=== PATIENT | female | born 1965 | race Caucasian/White ===

== ENCOUNTER 2020-05-16 22:49 | Observation (INO) | payer BC ==
--- NOTE | 2020-05-16 23:01 | EDM.PDOC ---
ED HPI GENERAL MEDICAL PROBLEM - General Chief Complaint: Abdominal Pain Stated Complaint: abdominal pain Time Seen by Provider: 05/16/20 23:00 - History of Present Illness INITIAL COMMENTS - FREE TEXT/NARRATIVE: 55-year-old female presents the emergency room with abdominal pain. She had an episode of upper abdominal pain with some associated vomiting last night and again this evening. She did not seem to have eaten before these episodes patient was found to have gallstones in the past but nothing was done with this. The patient has not had associated fevers and chills. No diarrhea. The pain is usually right upper quadrant but now radiates across her upper abdomen. She used to have reflux but is not having any reflux-like symptoms currently. Bilateral Upper Abdominal Pain Score (Numeric/FACES): 10 - Related Data Allergies Allergy/AdvReac Type Severity Reaction Status Date / Time acetaminophen [From Vicodin] Allergy Severe Numbness Verified 05/16/20 23:01 hydrocodone [From Vicodin] Allergy Severe Numbness Verified 05/16/20 23:01 Sulfa (Sulfonamide Allergy Severe Rash Verified 05/16/20 23:01 Antibiotics) Home Meds: Home Meds Levothyroxine 150 mcg PO DAILY 05/16/20 [History] lisinopriL [Lisinopril] 10 mg PO DAILY 05/16/20 [History] ED ROS GENERAL - Review of Systems Review Of Systems: See Below Constitutional: Reports: No Symptoms HEENT: Reports: No Symptoms Respiratory: Reports: No Symptoms Cardiovascular: Reports: No Symptoms GI/Abdominal: Reports: Abdominal Pain, Nausea, Vomiting. Denies: Constipation, Diarrhea : Reports: No Symptoms Musculoskeletal: Reports: No Symptoms Skin: Reports: No Symptoms Neurological: Reports: No Symptoms ED EXAM, GI/ABD - Physical Exam Exam: See Below Exam Limited By: No Limitations General Appearance: Alert, No Apparent Distress Head: Atraumatic, Normocephalic Neck: Normal Inspection, Supple, Non-Tender, Full Range of Motion. No: Lymphadenopathy (L), Lymphadenopathy (R) Respiratory/Chest: No Respiratory Distress, Lungs Clear, Normal Breath Sounds Cardiovascular: Regular Rate, Rhythm, No Edema, No Murmur GI/Abdominal Exam: Normal Bowel Sounds, Soft, Non-Tender Back Exam: Normal Inspection. No: CVA Tenderness (L), CVA Tenderness (R) Extremities: Normal Inspection, No Pedal Edema Neurological: Alert, Oriented, Normal Cognition Course - Vital Signs Last Recorded V/S: Last Vital Signs Temp 36.1 C 05/16/20 22:55 Pulse 65 05/16/20 22:55 Resp 20 05/16/20 22:55 BP 111/81 05/16/20 22:55 Pulse Ox 100 05/16/20 22:55 - Orders/Labs/Meds Orders: Active Orders 24 hr Category Date Time Status Abdomen Ltd [US] Stat Exams 05/16/20 23:44 Taken Lactated Ringers [Ringers, Lactated] 1,000 ml Med 05/16/20 23:15 Active IV ASDIRECTED Medication Orders Lactated Ringer's (Ringers, Lactated) 1,000 mls @ 150 mls/hr IV ASDIRECTED HI Last Admin: 05/16/20 23:26 Dose: 150 mls/hr Documented by: PATTIE Labs: Laboratory Tests 05/16/20 05/16/20 05/17/20 Range/Units 23:25 23:25 00:45 WBC 8.69 (3.98-10.04) K/mm3 RBC 4.77 (3.98-5.22) M/mm3 Hgb 14.2 (11.2-15.7) gm/dl Hct 41.9 (34.1-44.9) % MCV 87.8 (79.4-94.8) fl MCH 29.8 (25.6-32.2) pg MCHC 33.9 (32.2-35.5) g/dl RDW Std Deviation 38.6 (36.4-46.3) fL Plt Count 196 (182-369) K/mm3 MPV 10.5 (9.4-12.3) fl Neut % (Auto) 65.6 (34.0-71.1) % Lymph % (Auto) 23.5 (19.3-51.7) % [place] % (Auto) 7.8 (4.7-12.5) % Eos % (Auto) 2.4 (0.7-5.8) Baso % (Auto) 0.5 (0.1-1.2) % Neut # (Auto) 5.70 (1.56-6.13) K/mm3 Lymph # (Auto) 2.04 (1.18-3.74) K/mm3 [place] # (Auto) 0.68 H (0.24-0.36) K/mm3 Eos # (Auto) 0.21 (0.04-0.36) K/mm3 Baso # (Auto) 0.04 (0.01-0.08) K/mm3 Sodium 137 (136-145) mEq/L Potassium 3.8 (3.5-5.1) mEq/L Chloride 100 (98-107) mEq/L Carbon Dioxide 29 (21-32) mEq/L Anion Gap 11.8 (5-15) BUN 20 H (7-18) mg/dL Creatinine 1.1 H (0.55-1.02) mg/dL Est Cr Clr Drug Dosing 45.70 mL/min Estimated GFR (MDRD) 52 (>60) mL/min BUN/Creatinine Ratio 18.2 H (14-18) Glucose 136 H (74-106) mg/dL Calcium 9.2 (8.5-10.1) mg/dL Total Bilirubin 0.7 (0.2-1.0) mg/dL Direct Bilirubin 0.30 H (0.0-0.2) mg/dl AST 52 H (15-37) U/L ALT 53 (14-59) U/L Alkaline Phosphatase 92 (46-116) U/L Total Protein 7.9 (6.4-8.2) g/dl Albumin 3.8 (3.4-5.0) g/dl Globulin 4.1 gm/dL Albumin/Globulin Ratio 0.9 L (1-2) Urine Color Yellow (Yellow) Urine Appearance Clear (Clear) Urine pH 6.0 (5.0-8.0) Ur Specific [place] 1.025 (1.005-1.030) Urine Protein Negative (Negative) Urine Glucose (UA) Negative (Negative) Urine Ketones Negative (Negative) Urine Occult Blood Negative (Negative) Urine Nitrite Negative (Negative) Urine Bilirubin Negative (Negative) Urine Urobilinogen 0.2 (0.2-1.0) Ur Leukocyte Esterase Negative (Negative) Meds: Medications Generic Name Dose Route Start Last Admin Trade Name Freq PRN Reason Stop Dose Admin Lactated Ringer's 1,000 mls @ 150 mls/hr 05/16/20 23:15 05/16/20 23:26 Ringers, Lactated IV 150 mls/hr ASDIRECTED HI Administration Discontinued Medications Generic Name Dose Route Start Last Admin Trade Name Chidi PRN Reason Stop Dose Admin Al Hydroxide/Mg Hydroxide 30 0 ml 05/16/20 23:25 05/16/20 23:30 ml/ Lidocaine HCl 15 ml PO 05/16/20 23:26 45 ml ONETIME ONE Administration Fentanyl 50 mcg 05/16/20 23:09 05/16/20 23:58 Sublimaze IVPUSH 05/16/20 23:10 50 mcg ONETIME ONE Administration Ondansetron HCl 4 mg 05/16/20 23:07 05/16/20 23:26 Zofran IVPUSH 05/16/20 23:08 4 mg ONETIME ONE Administration - Re-Assessments/Exams Free Text/Narrative Re-Assessment/Exam: 05/17/20 01:35 Lab evaluation was unrevealing for the most part. Direct bili was 0.3 total bili 0.7 BUN 20 creatinine 1.1 no other significance I was able to get a gallbladder ultrasound which did show multiple gallstones with gallstone bladder wall thickening in the gallbladder wall measuring up to 3.9 mm no gennaro- cholecystic fluid present common bile duct measures 4.1 mm no stones or no dilat ion identified. She also had some hepatic steatosis noted. Case was discussed with Dr. Mares, on-call surgeon, and with careful conversation with the patient it was determined best to put the patient on observation anticipating laparoscopic cholecystectomy in the morning patient will be started on Zosyn. She will remain n.p.o. with as needed nausea and pain medications. Departure - Departure Time of Disposition: 01:40 Disposition: Refer to Observation Clinical Impression: Cholecystitis, Cholelithiasis - Discharge Information Sepsis Event Note (ED) - Evaluation Sepsis Screening Result: No Definite Risk - Focused Exam Vital Signs: Vital Signs Temp Pulse Resp BP Pulse Ox 05/16/20 22:55 36.1 C 65 20 111/81 100 - My Orders Last 24 Hours: My Active Orders 05/16/20 23:15 Lactated Ringers [Ringers, Lactated] 1,000 ml IV ASDIRECTED 05/16/20 23:44 Abdomen Ltd [US] Stat - Assessment/Plan Last 24 Hours: My Active Orders 05/16/20 23:15 Lactated Ringers [Ringers, Lactated] 1,000 ml IV ASDIRECTED 05/16/20 23:44 Abdomen Ltd [US] Stat
[2020-05-16] MEDS ORDERED: Ondansetron 4 MG/2 ML SDV IVPUSH ONE (23:07)
[2020-05-16] MEDS ORDERED: fentaNYL 100 MCG/2 ML SDV IVPUSH ONE (23:09)
[2020-05-16] MEDS ORDERED: Lactated Ringers 1,000 ML IV SCH (23:15)
[2020-05-16] MEDS ORDERED: Alum Hydrox/Mag Hydrox/Simeth 30 ML, Lidocaine 2% 15 ML PO ONE ×2 (23:25)
[2020-05-17] MEDS ORDERED: Piperacillin/Tazobactam 3.375 GM in Sodium Chloride 0.9% 100 ML IV ONE (04:28)
[2020-05-17] MEDS ORDERED: Ondansetron 4 MG/2 ML SDV IVPUSH PRN ×2 (04:30→09:44)
[2020-05-17] MEDS ORDERED: Dextrose 5%-Lactated Ringers 1,000 ML IV SCH (04:30)
[2020-05-17] MEDS ORDERED: HYDROmorphone 0.5 MG/0.5 ML Syringe IVPUSH PRN (04:33)
[2020-05-17] MEDS ORDERED: Piperacillin/Tazobactam 4.5 GM in Sodium Chloride 0.9% 100 ML IV ONE (04:45)
--- NOTE | 2020-05-17 06:00 | US ---
Limited abdominal ultrasound: Multiple real-time images of the upper right abdomen were obtained. Comparison: No prior abdominal imaging is available. Pancreas appears within normal limits. Liver appears slightly echogenic as compared to the right kidney. No focal abnormality is appreciated. Multiple gallstones seen within the gallbladder. Gallbladder wall appears somewhat thickened. No pericholecystic fluid is seen. Common bile duct measures within normal limits. Hypoechoic area is seen next to the gallbladder most likely representing focal fatty sparing. Right kidney shows no hydronephrosis or mass. Right kidney has a length 10.8 cm. Inferior vena cava is patent. Main portal vein shows normal hepatopedal flow. Impression: 1. Gallstones with mild gallbladder wall thickening. No biliary duct dilatation seen. 2. Low density is seen next to the gallbladder most likely representing focal fatty sparing. Fatty infiltration is seen within other portions of the liver. 3. No additional abnormality is seen on right upper quadrant abdominal ultrasound. Diagnostic code #3 This report was dictated in MDT I agree with preliminary report from [facility], finalized on 05/17/20, 1:46 AM Central Daylight Time
--- NOTE | 2020-05-17 08:01 | PCM.PREANE ---
Preanesthetic Assessment - Procedure Proposed Procedure: laparoscopic cholecystectomy - Anesthesia/Transfusion/Family Hx Anesthesia History: Prior Anesthesia Without Reaction Family History of Anesthesia Reaction: No Transfusion History: No Prior Transfusion(s) - Review of Systems General: Fatigue Pulmonary: No Symptoms Cardiovascular: No Symptoms Gastrointestinal: Abdominal Pain Neurological: No Symptoms Other: Reports: Thyroid Problems (hypothyroid) - Physical Assessment NPO Status Date: 05/16/20 NPO Status Time: 00:00 Vital Signs: Last Vital Signs Temp 36.7 C 05/17/20 03:29 Pulse 71 05/17/20 03:29 Resp 16 05/17/20 03:29 BP 109/57 L 05/17/20 03:29 Pulse Ox 100 05/17/20 03:29 Height: 1.57 m Weight: 66.633 kg ASA Class: 2 Mental Status: Alert & Oriented x3 Airway Class: Mallampati = 1 Dentition: Reports: Normal Dentition, [place](s) Thyro-Mental Finger Breadths: 2 Mouth Opening Finger Breadths: 3 ROM/Head Extension: Full Lungs: Clear to Auscultation, Normal Respiratory Effort Cardiovascular: Regular Rate, Regular Rhythm - Lab Values: Laboratory Last Values WBC 8.69 K/mm3 (3.98-10.04) 05/16/20 23:25 RBC 4.77 M/mm3 (3.98-5.22) 05/16/20 23:25 Hgb 14.2 gm/dl (11.2-15.7) 05/16/20 23:25 Hct 41.9 % (34.1-44.9) 05/16/20 23:25 MCV 87.8 fl (79.4-94.8) 05/16/20 23:25 MCH 29.8 pg (25.6-32.2) 05/16/20 23:25 MCHC 33.9 g/dl (32.2-35.5) 05/16/20 23:25 RDW Std Deviation 38.6 fL (36.4-46.3) 05/16/20 23:25 Plt Count 196 K/mm3 (182-369) 05/16/20 23:25 MPV 10.5 fl (9.4-12.3) 05/16/20 23:25 Neut % (Auto) 65.6 % (34.0-71.1) 05/16/20 23:25 Lymph % (Auto) 23.5 % (19.3-51.7) 05/16/20 23:25 [place] % (Auto) 7.8 % (4.7-12.5) 05/16/20 23:25 Eos % (Auto) 2.4 (0.7-5.8) 05/16/20 23:25 Baso % (Auto) 0.5 % (0.1-1.2) 05/16/20 23:25 Neut # (Auto) 5.70 K/mm3 (1.56-6.13) 05/16/20 23:25 Lymph # (Auto) 2.04 K/mm3 (1.18-3.74) 05/16/20 23:25 [place] # (Auto) 0.68 K/mm3 (0.24-0.36) H 05/16/20 23:25 Eos # (Auto) 0.21 K/mm3 (0.04-0.36) 05/16/20 23:25 Baso # (Auto) 0.04 K/mm3 (0.01-0.08) 05/16/20 23:25 Sodium 137 mEq/L (136-145) 05/16/20 23:25 Potassium 3.8 mEq/L (3.5-5.1) 05/16/20 23:25 Chloride 100 mEq/L (98-107) 05/16/20 23:25 Carbon Dioxide 29 mEq/L (21-32) 05/16/20 23:25 Anion Gap 11.8 (5-15) 05/16/20 23:25 BUN 20 mg/dL (7-18) H 05/16/20 23:25 Creatinine 1.1 mg/dL (0.55-1.02) H 05/16/20 23:25 Est Cr Clr Drug Dosing 45.70 mL/min 05/16/20 23:25 Estimated GFR (MDRD) 52 mL/min (>60) 05/16/20 23:25 BUN/Creatinine Ratio 18.2 (14-18) H 05/16/20 23:25 Glucose 136 mg/dL (74-106) H 05/16/20 23:25 Calcium 9.2 mg/dL (8.5-10.1) 05/16/20 23:25 Total Bilirubin 0.7 mg/dL (0.2-1.0) 05/16/20 23:25 Direct Bilirubin 0.30 mg/dl (0.0-0.2) H 05/16/20 23:25 AST 52 U/L (15-37) H 05/16/20 23:25 ALT 53 U/L (14-59) 05/16/20 23:25 Alkaline Phosphatase 92 U/L (46-116) 05/16/20 23:25 Total Protein 7.9 g/dl (6.4-8.2) 05/16/20 23:25 Albumin 3.8 g/dl (3.4-5.0) 05/16/20 23:25 Globulin 4.1 gm/dL 05/16/20 23:25 Albumin/Globulin Ratio 0.9 (1-2) L 05/16/20 23:25 Urine Color Yellow (Yellow) 05/17/20 00:45 Urine Appearance Clear (Clear) 05/17/20 00:45 Urine pH 6.0 (5.0-8.0) 05/17/20 00:45 Ur Specific [place] 1.025 (1.005-1.030) 05/17/20 00:45 Urine Protein Negative (Negative) 05/17/20 00:45 Urine Glucose (UA) Negative (Negative) 05/17/20 00:45 Urine Ketones Negative (Negative) 05/17/20 00:45 Urine Occult Blood Negative (Negative) 05/17/20 00:45 Urine Nitrite Negative (Negative) 05/17/20 00:45 Urine Bilirubin Negative (Negative) 05/17/20 00:45 Urine Urobilinogen 0.2 (0.2-1.0) 05/17/20 00:45 Ur Leukocyte Esterase Negative (Negative) 05/17/20 00:45 SARS Virus RNA (PCR) Negative (NEGATIVE) 05/17/20 01:40 - Allergies Allergies/Adverse Reactions: Allergies Allergy/AdvReac Type Severity Reaction Status Date / Time acetaminophen [From Vicodin] Allergy Severe Numbness Verified 05/17/20 03:45 hydrocodone [From Vicodin] Allergy Severe Numbness Verified 05/17/20 03:45 Sulfa (Sulfonamide Allergy Severe Rash Verified 05/17/20 03:45 Antibiotics) - Blood Blood Available: No Product(s) Available: None - Anesthesia Plan Pre-Op Medication Ordered: None - Acknowledgements Anesthesia Type Planned: General Anesthesia Pt an Appropriate Candidate for the Planned Anesthesia: Yes Alternatives and Risks of Anesthesia Discussed w Pt/Guardian: Yes Pt/Guardian Understands and Agrees with Anesthesia Plan: Yes PreAnesthesia Questionnaire - Past Health History Medical/Surgical History: Denies Medical/Surgical History Cardiovascular History: Reports: Hypertension Respiratory History: Reports: Other (See Below) Other Respiratory History: seasonal allergies Gastrointestinal History: Reports: GERD, Other (See Below) Other Gastrointestinal History: gall stones RESULTS ENGINEER History: Reports: Neurological History: Reports: Vertigo Endocrine/Metabolic History: Reports: Hypothyroidism Oncologic (Cancer) History: Reports: Cervix - Infectious Disease History Infectious Disease History: Reports: Chicken Pox - Past Surgical History Cardiovascular Surgical History: Reports: None GI Surgical History: Reports: Cholecystectomy Other GI Surgeries/Procedures: plans cholecystectomy Endocrine Surgical History: Reports: None Neurological Surgical History: Reports: None Oncologic Surgical History: Reports: None Dermatological Surgical History: Reports: None - SUBSTANCE USE Smoking Status *Q: Never Smoker Tobacco Use Within Last Twelve Months: No Second Hand Smoke Exposure: No Days Per Week of Alcohol Use: 0 Number of Drinks Per Day: 0 Total Drinks Per Week: 0 Recreational Drug Use History: No - HOME MEDS Home Medications: Home Meds Levothyroxine 150 mcg PO DAILY 05/16/20 [History] lisinopriL [Lisinopril] 10 mg PO DAILY 05/16/20 [History] - CURRENT (IN HOUSE) MEDS Current Meds: Current Medications Hydromorphone HCl (Dilaudid) 0.5 mg IVPUSH Q2H PRN PRN Reason: Pain Dextrose/Lactated Ringer's (Dextrose 5%-Lactated Ringers) 1,000 mls @ 125 mls/hr IV ASDIRECTED [facility] [place] Last Admin: 05/17/20 05:10 Dose: 125 mls/hr Documented by: Ondansetron HCl (Zofran) 4 mg IVPUSH Q4H PRN PRN Reason: Nausea Discontinued Medications Al Hydroxide/Mg Hydroxide 30 (ml/ Lidocaine HCl 15 ml) 0 ml PO ONETIME ONE Stop: 05/16/20 23:26 Last Admin: 05/16/20 23:30 Dose: 45 ml Documented by: Fentanyl (Sublimaze) 50 mcg IVPUSH ONETIME ONE Stop: 05/16/20 23:10 Last Admin: 05/16/20 23:58 Dose: 50 mcg Documented by: Lactated Ringer's (Ringers, Lactated) 1,000 mls @ 150 mls/hr IV ASDIRECTED HI Last Admin: 05/16/20 23:26 Dose: 150 mls/hr Documented by: Piperacillin Sod/Tazobactam (Sod 4.5 gm/ Sodium Chloride) 100 mls @ 200 mls/hr IV ONETIME ONE Stop: 05/17/20 05:14 Last Admin: 05/17/20 05:10 Dose: 200 mls/hr Documented by: Ondansetron HCl (Zofran) 4 mg IVPUSH ONETIME ONE Stop: 05/16/20 23:08 Last Admin: 05/16/20 23:26 Dose: 4 mg Documented by:
[2020-05-17] MEDS ORDERED: ceFAZolin 2 GM in Premix Bag 1 BAG IV ONE (08:02)
[2020-05-17] MEDS ORDERED: Bupivacaine 0.5%/EPINEPHrine 1:200,000 50 ML MDV ONE (08:23)
[2020-05-17] MEDS ORDERED: Lidocaine 1% 4 ML ONE (09:15)
[2020-05-17] MEDS ORDERED: Ondansetron 4 MG/2 ML SDV ONE (09:15)
[2020-05-17] MEDS ORDERED: Rocuronium 50 MG/5 ML Vial ONE (09:15)
[2020-05-17] MEDS ORDERED: Midazolam 1 MG/ML 2 ML SDV ONE (09:16)
[2020-05-17] MEDS ORDERED: fentaNYL 250 MCG/5 ML SDV ONE (09:16)
[2020-05-17] MEDS ORDERED: Propofol 200 MG/20 ML SDV ONE (09:16)
[2020-05-17] MEDS ORDERED: Dexamethasone 4 MG/ML 5 ML MDV ONE (09:18)
[2020-05-17] MEDS ORDERED: Lactated Ringers 1,000 ML ONE (09:24)
[2020-05-17] MEDS ORDERED: ceFAZolin 1 GM Vial ONE (09:34)
[2020-05-17] MEDS ORDERED: fentaNYL 100 MCG/2 ML SDV IVPUSH PRN (09:44)
[2020-05-17] MEDS ORDERED: fentaNYL 100 MCG/2 ML SDV ONE (09:52)
[2020-05-17] MEDS ORDERED: Ketorolac 30 MG/ML SDV ONE (09:56)
--- NOTE | 2020-05-17 10:27 | PCM.PRNOTE ---
- Free Text/Narrative Note: Operative Report Operation: laparoscopic cholecystectomy Date: 05/17/2020 Attending Surgeon: Logan Mares MD Indication for Surgery: acute cholecystitis Preoperative antibiotics: 2 g Ancef IV VTE prophylaxis: SCDs Estimated Blood Loss: 5 cc Findings: mild cholecystitis. Critical view of safety obtained. Detailed Report: The patient underwent general endotracheal anesthesia after being placed supine on the operating table and initial timeout. The abdomen was prepped and draped in sterile fashion. A pre-incision timeout was performed confirming the patients identity and the operation to be performed. A Veress needle was inserted into the abdominal cavity below the left costal margin along the mid-clavicular line. The abdomen was insufflated with CO2 to 15 mm Hg. Gas was aspirated below the umbilicus with a syringe in order to ensure safe placement of a 5 mm bladed laparoscopic port. The 5mm 30 degree laparoscope was then inserted and viscera inspected. Two additional 5 mm ports were placed along the right subcostal region under direct vision with the laparoscope, and a 12 mm port was placed at the subxiphoid region. There was a tongue of omentum adherent to the right hemidiaphragm anterior to the liver requiring adhesiolysis. Once exposed, the gallbladder appeared to not be terribly inflamed.The gallbladder was grasped at the fundus with a locking grasper and retracted anteriorly and superiorly, exposing the infundibulum. This was grasped with the surgeons left hand grasper and retracted laterally. The hook electrode was used to open the overlying peritoneum, and this plane of dissection was developed along the edges of the gallbladder at its interface with the liver bed. A combination of hook electrode, blunt dissection with the suction child care nurse and the [place] grasper were used to carefully expose and skeletonize the cystic duct and artery. A critical view of safety was obtained. Hemolock clips were then placed on both structures. The duct and artery were transected with laparoscopic scissors between the hemolock clips. The hook was then used to dissect the gallbladder free from its attachment to the liver. The specimen was then placed in an Endocatch bag and removed through the subxiphoid port. The liver bed was inspected and appeared hemostatic. The larger subxiphoid port was closed at the level of the fascia with vicryl suture using the PMI laparoscopic suture passer. Pneumoperitoneum was then released. All skin incisions were then closed with placement of subcuticular vicryl suture and dressed with dermabond. A total of 20 cc 0.5% marcaine with epinephrine was used for local anesthesia at the incision sites. The patient tolerated the operation well, was extubated in the operating room and transferred to the PACU for routine post-anesthesia care.
--- NOTE | 2020-05-17 10:30 | PCM.HP.2 ---
H&P History of Present Illness - General Date of Service: 05/17/20 Admit Problem/Dx: acute cholecystitis Source of Information: Patient History Limitations: Reports: No Limitations - History of Present Illness Other HPI/Comments: Patient with known symptomatic cholelithiasis came in to the ER after more frequent, severe episodes of right upper quadrant pain. Though RUQ US shows some mild wall thickening and stones, her labs and vitals are normal and she is in no distress. Bilateral Upper Abdominal Pain Score (Numeric/FACES): 2 - Related Data Allergies/Adverse Reactions: Allergies Allergy/AdvReac Type Severity Reaction Status Date / Time acetaminophen [From Vicodin] Allergy Severe Numbness Verified 05/17/20 03:45 hydrocodone [From Vicodin] Allergy Severe Numbness Verified 05/17/20 03:45 Sulfa (Sulfonamide Allergy Severe Rash Verified 05/17/20 03:45 Antibiotics) Home Medications: Home Meds Levothyroxine 150 mcg PO DAILY 05/16/20 [History] lisinopriL [Lisinopril] 10 mg PO DAILY 05/16/20 [History] oxyCODONE 5 mg PO Q4H PRN #10 tab 05/17/20 [Rx] Past Medical History - Past Health History Medical/Surgical History: Denies Medical/Surgical History Cardiovascular History: Reports: Hypertension Respiratory History: Reports: Other (See Below) Other Respiratory History: seasonal allergies Gastrointestinal History: Reports: GERD, Other (See Below) Other Gastrointestinal History: gall stones CTRS History: Reports: Neurological History: Reports: Vertigo Endocrine/Metabolic History: Reports: Hypothyroidism Do You Have Enough Pump Supplies for Your Hospital Stay: No Do You Give Correction Boluses or Sliding Scale: No Oncologic (Cancer) History: Reports: Cervix - Infectious Disease History Infectious Disease History: Reports: Chicken Pox - Past Surgical History Cardiovascular Surgical History: Reports: None GI Surgical History: Reports: Cholecystectomy Other GI Surgeries/Procedures: plans cholecystectomy Endocrine Surgical History: Reports: None Neurological Surgical History: Reports: None Oncologic Surgical History: Reports: None Dermatological Surgical History: Reports: None Social & Family History - Family History Family Medical History: Noncontributory - Tobacco Use Smoking Status *Q: Never Smoker Used Tobacco, but Quit: Yes Month/Year Tobacco Last Used: 1992 Second Hand Smoke Exposure: No - Caffeine Use Caffeine Use: Reports: None - Alcohol Use Days Per Week of Alcohol Use: 0 Number of Drinks Per Day: 0 Total Drinks Per Week: 0 - Recreational Drug Use Recreational Drug Use: No H&P Review of Systems - Review of Systems: Review Of Systems: See Below General: Reports: Malaise HEENT: Reports: No Symptoms Pulmonary: Reports: No Symptoms Cardiovascular: Reports: No Symptoms Gastrointestinal: Reports: Abdominal Pain, Nausea Genitourinary: Reports: No Symptoms Musculoskeletal: Reports: No Symptoms Skin: Reports: No Symptoms Psychiatric: Reports: No Symptoms Neurological: Reports: No Symptoms Hematologic/Lymphatic: Reports: No Symptoms Immunologic: Reports: No Symptoms Exam - Exam Exam: See Below - Vital Signs Vital Signs: Last Vital Signs Temp 36.7 C 05/17/20 03:29 Pulse 71 05/17/20 03:29 Resp 16 05/17/20 03:29 BP 109/57 L 05/17/20 03:29 Pulse Ox 100 05/17/20 03:29 Weight: 66.633 kg - Exam General: Alert, Oriented, Cooperative HEENT: Conjunctiva Clear Neck: Trachea Midline Lungs: Clear to Auscultation, Normal Respiratory Effort Cardiovascular: Regular Rate, Regular Rhythm GI/Abdominal Exam: Soft, Non-Tender Extremities: Normal Inspection Skin: Warm, Dry Psychiatric: Normal Mood - Patient Data Lab Results Last 24 hrs: Laboratory Results - last 24 hr 05/16/20 05/16/20 05/17/20 Range/Units 23:25 23:25 00:45 WBC 8.69 (3.98-10.04) K/mm3 RBC 4.77 (3.98-5.22) M/mm3 Hgb 14.2 (11.2-15.7) gm/dl Hct 41.9 (34.1-44.9) % MCV 87.8 (79.4-94.8) fl MCH 29.8 (25.6-32.2) pg MCHC 33.9 (32.2-35.5) g/dl RDW Std Deviation 38.6 (36.4-46.3) fL Plt Count 196 (182-369) K/mm3 MPV 10.5 (9.4-12.3) fl Neut % (Auto) 65.6 (34.0-71.1) % Lymph % (Auto) 23.5 (19.3-51.7) % [place] % (Auto) 7.8 (4.7-12.5) % Eos % (Auto) 2.4 (0.7-5.8) Baso % (Auto) 0.5 (0.1-1.2) % Neut # (Auto) 5.70 (1.56-6.13) K/mm3 Lymph # (Auto) 2.04 (1.18-3.74) K/mm3 [place] # (Auto) 0.68 H (0.24-0.36) K/mm3 Eos # (Auto) 0.21 (0.04-0.36) K/mm3 Baso # (Auto) 0.04 (0.01-0.08) K/mm3 Sodium 137 (136-145) mEq/L Potassium 3.8 (3.5-5.1) mEq/L Chloride 100 (98-107) mEq/L Carbon Dioxide 29 (21-32) mEq/L Anion Gap 11.8 (5-15) BUN 20 H (7-18) mg/dL Creatinine 1.1 H (0.55-1.02) mg/dL Est Cr Clr Drug Dosing 45.70 mL/min Estimated GFR (MDRD) 52 (>60) mL/min BUN/Creatinine Ratio 18.2 H (14-18) Glucose 136 H (74-106) mg/dL Calcium 9.2 (8.5-10.1) mg/dL Total Bilirubin 0.7 (0.2-1.0) mg/dL Direct Bilirubin 0.30 H (0.0-0.2) mg/dl AST 52 H (15-37) U/L ALT 53 (14-59) U/L Alkaline Phosphatase 92 (46-116) U/L Total Protein 7.9 (6.4-8.2) g/dl Albumin 3.8 (3.4-5.0) g/dl Globulin 4.1 gm/dL Albumin/Globulin Ratio 0.9 L (1-2) Urine Color Yellow (Yellow) Urine Appearance Clear (Clear) Urine pH 6.0 (5.0-8.0) Ur Specific [place] 1.025 (1.005-1.030) Urine Protein Negative (Negative) Urine Glucose (UA) Negative (Negative) Urine Ketones Negative (Negative) Urine Occult Blood Negative (Negative) Urine Nitrite Negative (Negative) Urine Bilirubin Negative (Negative) Urine Urobilinogen 0.2 (0.2-1.0) Ur Leukocyte Esterase Negative (Negative) SARS Virus RNA (PCR) (NEGATIVE) 05/17/20 Range/Units 01:40 WBC (3.98-10.04) K/mm3 RBC (3.98-5.22) M/mm3 Hgb (11.2-15.7) gm/dl Hct (34.1-44.9) % MCV (79.4-94.8) fl MCH (25.6-32.2) pg MCHC (32.2-35.5) g/dl RDW Std Deviation (36.4-46.3) fL Plt Count (182-369) K/mm3 MPV (9.4-12.3) fl Neut % (Auto) (34.0-71.1) % Lymph % (Auto) (19.3-51.7) % [place] % (Auto) (4.7-12.5) % Eos % (Auto) (0.7-5.8) Baso % (Auto) (0.1-1.2) % Neut # (Auto) (1.56-6.13) K/mm3 Lymph # (Auto) (1.18-3.74) K/mm3 [place] # (Auto) (0.24-0.36) K/mm3 Eos # (Auto) (0.04-0.36) K/mm3 Baso # (Auto) (0.01-0.08) K/mm3 Sodium (136-145) mEq/L Potassium (3.5-5.1) mEq/L Chloride (98-107) mEq/L Carbon Dioxide (21-32) mEq/L Anion Gap (5-15) BUN (7-18) mg/dL Creatinine (0.55-1.02) mg/dL Est Cr Clr Drug Dosing mL/min Estimated GFR (MDRD) (>60) mL/min BUN/Creatinine Ratio (14-18) Glucose (74-106) mg/dL Calcium (8.5-10.1) mg/dL Total Bilirubin (0.2-1.0) mg/dL Direct Bilirubin (0.0-0.2) mg/dl AST (15-37) U/L ALT (14-59) U/L Alkaline Phosphatase (46-116) U/L Total Protein (6.4-8.2) g/dl Albumin (3.4-5.0) g/dl Globulin gm/dL Albumin/Globulin Ratio (1-2) Urine Color (Yellow) Urine Appearance (Clear) Urine pH (5.0-8.0) Ur Specific [place] (1.005-1.030) Urine Protein (Negative) Urine Glucose (UA) (Negative) Urine Ketones (Negative) Urine Occult Blood (Negative) Urine Nitrite (Negative) Urine Bilirubin (Negative) Urine Urobilinogen (0.2-1.0) Ur Leukocyte Esterase (Negative) SARS Virus RNA (PCR) Negative (NEGATIVE) Result Diagrams: 05/16/20 23:25 05/16/20 23:25 Sepsis Event Note - Evaluation Sepsis Screening Result: No Definite Risk - Focused Exam Vital Signs: Vital Signs Temp Temp Pulse Pulse Resp BP BP 05/17/20 03:29 36.7 C 71 16 109/57 L 05/16/20 22:55 36.1 C 65 20 111/81 Pulse Ox 05/17/20 03:29 100 05/16/20 22:55 100 Date Exam was Performed: 05/17/20 Time Exam was Performed: 10:27 Problem List Initiated/Reviewed/Updated: Yes Orders Last 24hrs: Active Orders 24 hr Category Date Time Status Admission Status [Patient Status] [ADT] Routine ADT 05/17/20 01:25 Active Communication Order [RC] ASDIRECTED Care 05/17/20 09:45 Active Cooling Warming Measures [RC] ASDIRECTED Care 05/17/20 09:45 Active Oxygen Therapy [RC] ASDIRECTED Care 05/17/20 09:45 Active Pulse Oximetry [RC] ASDIRECTED Care 05/17/20 09:45 Active Ready for Discharge [RC] PER UNIT ROUTINE Care 05/17/20 10:22 Ordered Up With Assistance [RC] ASDIRECTED Care 05/17/20 04:34 Active Vital Signs [RC] Q15M Care 05/17/20 09:45 Active Regular Diet [DIET] Diet 05/17/20 Lunch Ordered Levothyroxine [Synthroid] Med 05/18/20 06:00 Active 100 mcg PO ACBREAKFAST Levothyroxine [Synthroid] Med 05/18/20 06:00 Active 50 mcg PO ACBREAKFAST Ondansetron [Zofran] Med 05/17/20 09:44 Active 4 mg IVPUSH ONETIME PRN Ondansetron [Zofran] Med 05/17/20 04:30 Active 4 mg IVPUSH Q4H PRN fentaNYL [Sublimaze] Med 05/17/20 09:44 Active 50 mcg IVPUSH Q5M PRN Schedule Procedure [COMM] Routine Oth 05/17/20 06:19 Ordered Code Status [Resuscitation Status] Routine Resus Stat 05/17/20 04:35 Ordered Medication Orders Fentanyl (Sublimaze) 50 mcg IVPUSH Q5M PRN PRN Reason: Pain Stop: 05/17/20 12:00 Levothyroxine Sodium (Synthroid) 50 mcg PO ACBREAKFAST HI Levothyroxine Sodium (Synthroid) 100 mcg PO ACBREAKFAST HI Ondansetron HCl (Zofran) 4 mg IVPUSH Q4H PRN PRN Reason: Nausea Ondansetron HCl (Zofran) 4 mg IVPUSH ONETIME PRN PRN Reason: Nausea/Vomiting Stop: 05/17/20 12:00 Assessment/Plan Comment:: mild cholecystitis vs symptomatic cholelithiasis with worsening frequency and severity. Plan for laparoscopic cholecystectomy. - Mortality Measure Prognosis:: Good
--- NOTE | 2020-05-17 10:31 | PCM.DCSUM1 ---
Discharge Summary - Hospital Course Free Text/Narrative:: Admitted through the ER with findings of cholelithiasis and probable mild early cholecystitis. Taken to OR for routine laparoscopic cholecystectomy. Diagnosis: Stroke: No - Discharge Data Discharge Date: 05/17/20 Discharge Disposition: Home, Self-Care 01 Condition: Good - Referral to Home Health Primary Care Physician: PCP None - Patient Summary/Data Operative Procedure(s) Performed: laparoscopic cholecystectomy - Patient Instructions Diet: Usual Diet as Tolerated Activity: No Lifting Over 10 Pounds Showering/Bathing: May Shower Wound/Incision Care: Keep Operative Site/Wound Site Clean and Dry Notify Provider of: Fever, Increased Pain, Swelling and Redness, Drainage, Nausea and/or Vomiting - Discharge Plan *PRESCRIPTION DRUG MONITORING PROGRAM REVIEWED*: Not Applicable *COPY OF PRESCRIPTION DRUG MONITORING REPORT IN PATIENT MAGGY: Not Applicable Prescriptions/Med Rec: oxyCODONE 5 mg PO Q4H PRN #10 tab PRN Reason: Pain Home Medications: Home Meds Levothyroxine 150 mcg PO DAILY 05/16/20 [History] lisinopriL [Lisinopril] 10 mg PO DAILY 05/16/20 [History] oxyCODONE 5 mg PO Q4H PRN #10 tab 05/17/20 [Rx] Oxygen Therapy Mode: Room Air Patient Handouts: Laparoscopic Cholecystectomy, Laparoscopic Cholecystectomy, Care After, [id number], Cholecystitis, [id number] Forms: ED Department Discharge Referrals: Logan Mares MD [Physician] - - Discharge Summary/Plan Comment DC Time >30 min.: No - Patient Data Vitals - Most Recent: Last Vital Signs Temp 36.7 C 05/17/20 03:29 Pulse 71 05/17/20 03:29 Resp 16 05/17/20 03:29 BP 109/57 L 05/17/20 03:29 Pulse Ox 100 05/17/20 03:29 Weight - Most Recent: 66.633 kg I&O - Last 24 hours: Intake & Output 05/16/20 05/17/20 05/17/20 22:59 06:59 14:59 Intake Total 0 Output Total 200 Balance -200 Lab Results - Last 24 hrs: Laboratory Results - last 24 hr 05/16/20 05/16/20 05/17/20 Range/Units 23:25 23:25 00:45 WBC 8.69 (3.98-10.04) K/mm3 RBC 4.77 (3.98-5.22) M/mm3 Hgb 14.2 (11.2-15.7) gm/dl Hct 41.9 (34.1-44.9) % MCV 87.8 (79.4-94.8) fl MCH 29.8 (25.6-32.2) pg MCHC 33.9 (32.2-35.5) g/dl RDW Std Deviation 38.6 (36.4-46.3) fL Plt Count 196 (182-369) K/mm3 MPV 10.5 (9.4-12.3) fl Neut % (Auto) 65.6 (34.0-71.1) % Lymph % (Auto) 23.5 (19.3-51.7) % [place] % (Auto) 7.8 (4.7-12.5) % Eos % (Auto) 2.4 (0.7-5.8) Baso % (Auto) 0.5 (0.1-1.2) % Neut # (Auto) 5.70 (1.56-6.13) K/mm3 Lymph # (Auto) 2.04 (1.18-3.74) K/mm3 [place] # (Auto) 0.68 H (0.24-0.36) K/mm3 Eos # (Auto) 0.21 (0.04-0.36) K/mm3 Baso # (Auto) 0.04 (0.01-0.08) K/mm3 Sodium 137 (136-145) mEq/L Potassium 3.8 (3.5-5.1) mEq/L Chloride 100 (98-107) mEq/L Carbon Dioxide 29 (21-32) mEq/L Anion Gap 11.8 (5-15) BUN 20 H (7-18) mg/dL Creatinine 1.1 H (0.55-1.02) mg/dL Est Cr Clr Drug Dosing 45.70 mL/min Estimated GFR (MDRD) 52 (>60) mL/min BUN/Creatinine Ratio 18.2 H (14-18) Glucose 136 H (74-106) mg/dL Calcium 9.2 (8.5-10.1) mg/dL Total Bilirubin 0.7 (0.2-1.0) mg/dL Direct Bilirubin 0.30 H (0.0-0.2) mg/dl AST 52 H (15-37) U/L ALT 53 (14-59) U/L Alkaline Phosphatase 92 (46-116) U/L Total Protein 7.9 (6.4-8.2) g/dl Albumin 3.8 (3.4-5.0) g/dl Globulin 4.1 gm/dL Albumin/Globulin Ratio 0.9 L (1-2) Urine Color Yellow (Yellow) Urine Appearance Clear (Clear) Urine pH 6.0 (5.0-8.0) Ur Specific [place] 1.025 (1.005-1.030) Urine Protein Negative (Negative) Urine Glucose (UA) Negative (Negative) Urine Ketones Negative (Negative) Urine Occult Blood Negative (Negative) Urine Nitrite Negative (Negative) Urine Bilirubin Negative (Negative) Urine Urobilinogen 0.2 (0.2-1.0) Ur Leukocyte Esterase Negative (Negative) SARS Virus RNA (PCR) (NEGATIVE) 05/17/20 Range/Units 01:40 WBC (3.98-10.04) K/mm3 RBC (3.98-5.22) M/mm3 Hgb (11.2-15.7) gm/dl Hct (34.1-44.9) % MCV (79.4-94.8) fl MCH (25.6-32.2) pg MCHC (32.2-35.5) g/dl RDW Std Deviation (36.4-46.3) fL Plt Count (182-369) K/mm3 MPV (9.4-12.3) fl Neut % (Auto) (34.0-71.1) % Lymph % (Auto) (19.3-51.7) % [place] % (Auto) (4.7-12.5) % Eos % (Auto) (0.7-5.8) Baso % (Auto) (0.1-1.2) % Neut # (Auto) (1.56-6.13) K/mm3 Lymph # (Auto) (1.18-3.74) K/mm3 [place] # (Auto) (0.24-0.36) K/mm3 Eos # (Auto) (0.04-0.36) K/mm3 Baso # (Auto) (0.01-0.08) K/mm3 Sodium (136-145) mEq/L Potassium (3.5-5.1) mEq/L Chloride (98-107) mEq/L Carbon Dioxide (21-32) mEq/L Anion Gap (5-15) BUN (7-18) mg/dL Creatinine (0.55-1.02) mg/dL Est Cr Clr Drug Dosing mL/min Estimated GFR (MDRD) (>60) mL/min BUN/Creatinine Ratio (14-18) Glucose (74-106) mg/dL Calcium (8.5-10.1) mg/dL Total Bilirubin (0.2-1.0) mg/dL Direct Bilirubin (0.0-0.2) mg/dl AST (15-37) U/L ALT (14-59) U/L Alkaline Phosphatase (46-116) U/L Total Protein (6.4-8.2) g/dl Albumin (3.4-5.0) g/dl Globulin gm/dL Albumin/Globulin Ratio (1-2) Urine Color (Yellow) Urine Appearance (Clear) Urine pH (5.0-8.0) Ur Specific [place] (1.005-1.030) Urine Protein (Negative) Urine Glucose (UA) (Negative) Urine Ketones (Negative) Urine Occult Blood (Negative) Urine Nitrite (Negative) Urine Bilirubin (Negative) Urine Urobilinogen (0.2-1.0) Ur Leukocyte Esterase (Negative) SARS Virus RNA (PCR) Negative (NEGATIVE) Med Orders - Current: Current Medications Fentanyl (Sublimaze) 50 mcg IVPUSH Q5M PRN PRN Reason: Pain Stop: 05/17/20 12:00 Levothyroxine Sodium (Synthroid) 50 mcg PO ACBREAKFAST HI Levothyroxine Sodium (Synthroid) 100 mcg PO ACBREAKFAST HI Ondansetron HCl (Zofran) 4 mg IVPUSH Q4H PRN PRN Reason: Nausea Ondansetron HCl (Zofran) 4 mg IVPUSH ONETIME PRN PRN Reason: Nausea/Vomiting Stop: 05/17/20 12:00 Discontinued Medications Bupivacaine HCl/Epinephrine Bitart (Marcaine 0.5%/Epinephrine 1:200,000) Confirm Administered Dose 50 ml .ROUTE .STK-MED ONE Stop: 05/17/20 08:24 Last Admin: 05/17/20 09:38 Dose: 23 ml Documented by: Cefazolin Sodium (Ancef) Confirm Administered Dose 2 gm .ROUTE .[facility]-MED ONE Stop: 05/17/20 09:35 Al Hydroxide/Mg Hydroxide 30 (ml/ Lidocaine HCl 15 ml) 0 ml PO ONETIME ONE Stop: 05/16/20 23:26 Last Admin: 05/16/20 23:30 Dose: 45 ml Documented by: Dexamethasone (Dexamethasone) Confirm Administered Dose 20 mg .ROUTE .[facility]-MED ONE Stop: 05/17/20 09:19 Fentanyl (Sublimaze) 50 mcg IVPUSH ONETIME ONE Stop: 05/16/20 23:10 Last Admin: 05/16/20 23:58 Dose: 50 mcg Documented by: Fentanyl (Sublimaze) Confirm Administered Dose 250 mcg .ROUTE .K-MED ONE Stop: 05/17/20 09:17 Fentanyl (Sublimaze) Confirm Administered Dose 100 mcg .ROUTE .[facility]-MED ONE Stop: 05/17/20 09:53 Glycopyrrolate () Confirm Administered Dose 1 mg .ROUTE .STK-MED ONE Stop: 05/17/20 09:55 Hydromorphone HCl (Dilaudid) 0.5 mg IVPUSH Q2H PRN PRN Reason: Pain Lactated Ringer's (Ringers, Lactated) 1,000 mls @ [facility] Last Admin: 05/16/20 23:26 Dose: 150 mls/hr Documented by: Dextrose/Lactated Ringer's (Dextrose 5%-Lactated Ringers) 1,000 mls @ 125 [facility]ls[facility] Last Admin: 05/17/20 05:10 Dose: 125 mls/hr Documented by: Piperacillin Sod/Tazobactam (Sod 4.5 gm/ Sodium Chloride) 100 mls @ 200 mls/hr IV ONETIME ONE Stop: 05/17/20 05:14 Last Admin: 05/17/20 05:10 Dose: 200 mls/hr Documented by: Cefazolin Sodium/Dextrose 2 gm (/ Premix) 50 mls @ 100 mls/hr IV ONETIME ONE Stop: 05/17/20 08:31 Lidocaine HCl (Xylocaine-Mpf 1%) Confirm Administered Dose 4 mls @ as directed .ROUTE .STK-MED ONE Stop: 05/17/20 09:16 Lactated Ringer's (Ringers, Lactated) Confirm Administered Dose 1,000 mls @ as directed .ROUTE .STK-MED ONE Stop: 05/17/20 09:25 Ketorolac Tromethamine (Toradol) Confirm Administered Dose 30 mg .ROUTE .STK-MED ONE Stop: 05/17/20 09:57 Midazolam HCl (Versed 1 Mg/Ml) Confirm Administered Dose 2 mg .ROUTE .STK-MED ONE Stop: 05/17/20 09:17 Neostigmine Methylsulfate (Neostigmine Methylsulfate) Confirm Administered Dose 5 mg .ROUTE .STK-MED ONE Stop: 05/17/20 09:55 Ondansetron HCl (Zofran) 4 mg IVPUSH ONETIME ONE Stop: 05/16/20 23:08 Last Admin: 05/16/20 23:26 Dose: 4 mg Documented by: Ondansetron HCl (Zofran) Confirm Administered Dose 4 mg .ROUTE .STK-MED ONE Stop: 05/17/20 09:16 Propofol (Diprivan 20 Ml) Confirm Administered Dose 200 mg .ROUTE .STK-MED ONE Stop: 05/17/20 09:17 Rocuronium [place] (Zemuron) Confirm Administered Dose 50 mg .ROUTE .STK-MED ONE Stop: 05/17/20 09:16
--- NOTE | 2020-05-17 10:39 | PCM.POSTAN ---
POST ANESTHESIA ASSESSMENT - MENTAL STATUS Mental Status: Somnolent - VITAL SIGNS Vital Signs: Last Vital Signs Temp 98.1 F 05/17/20 03:29 Pulse 71 05/17/20 03:29 Resp 16 05/17/20 03:29 BP 109/57 L 05/17/20 03:29 Pulse Ox 100 05/17/20 03:29 1034 98/59 70 13 98.7 100% - RESPIRATORY Respiratory Status: Respiratory Rate WNL, Airway Patent, O2 Saturation Stable, Supplemental Oxygen - CARDIOVASCULAR CV Status: Pulse Rate WNL, Blood Pressure Stable - GASTROINTESTINAL GI Status: No Symptoms - PAIN Pain Score: 0 (snoring resp) - POST OP HYDRATION Hydration Status: Adequate & Stable
[2020-05-17] MEDS ORDERED: Promethazine 12.5 MG in Sodium Chloride 0.9% 50 ML IV ONE (12:11)
[2020-05-17] MEDS ORDERED: Ibuprofen 600 MG Tab PO ONE (12:12)
[2020-05-17] MEDS ORDERED: Acetaminophen 325 MG Tab PO ONE (12:16)
[2020-05-17] MEDS ORDERED: Promethazine 25 MG/ML SDV ONE (12:27)
--- NOTE | 2020-05-17 13:18 | PCM48HPAN ---
Post Anesthesia Note - EVALUATION WITHIN 48HRS OF ANESTHETIC Vital Signs in Normal Range: Yes Patient Participated in Evaluation: Yes Respiratory Function Stable: Yes Hydration Status Stable: Yes Pain Control Satisfactory: Yes Nausea and Vomiting Control Satisfactory: No (better after meds) Mental Status Recovered: Yes Vital Signs: Last Vital Signs Temp 97.4 F 05/17/20 11:30 Pulse 72 05/17/20 11:47 Resp 12 05/17/20 11:30 BP 137/69 05/17/20 11:47 Pulse Ox 98 05/17/20 11:47
[2020-05-17] MEDS ORDERED: oxyCODONE 5 MG Tab PO PRN (16:46)
[2020-05-18] MEDS ORDERED: Levothyroxine 50 MCG Tab PO SCH (06:00)
[2020-05-18] MEDS ORDERED: Levothyroxine 100 MCG Tab PO SCH (06:00)
== END 2020-05-17 18:00 | disposition home or self-care (01) ==
LOC: JD.ED 22:49 → JD.MS 05-17 01:25
PROVIDERS: ADMIT Surgery; ATTEND Surgery
DX: K80.12 Calculus of gallbladder with acute and chronic cholecystitis without obstruction (principal); E03.9 Hypothyroidism, unspecified; I10 Essential (primary) hypertension; K21.9 Gastro-esophageal reflux disease without esophagitis; Z11.59 Encounter for screening for other viral diseases; Z88.6 Allergy status to analgesic agent; Z88.2 Allergy status to sulfonamides; Z79.899 Other long term (current) drug therapy; Z79.890 Hormone replacement therapy
CPT/HCPCS: 36415; 47562; 76705; 80053; 81003; 82248; 85025; 87635; 96361; 96365; 96375; 99285; A9270; G0378; J0690; J1100; J1885; J2001; J2250; J2405; J2543; J2550; J2704; J2710; J3010; J3490; J7050; J7120; J7121; 00790; 96374; 99284; U0002